=== PATIENT | female | born 1985 | race Caucasian/White ===

== ENCOUNTER 2018-02-26 19:57 | Emergency (ER) | payer SELFPAY ==
[2018-02-26 19:58] VITALS: BP 169/132; PULSE 104; RESP 17; TEMP 37.1; O2SAT 98; BMI 28.2
[2018-02-26 21:09] VITALS: BP 154/115; PULSE 95; RESP 15; O2SAT 94
--- NOTE | 2018-02-26 21:12 | ED.DCSUM_ITS ---
- ER Visit Summary Date of Service: 02/26/18 Chief Complaint: Left long finger injury History of Present Illness: The patient is a 32 F presenting for evaluation secondary to a left long finger injury. Patient states that she had just finished work and was going to lean on a beer keg. She reports that she was going to clear the water off of it and she lacerated her left long digit. She reports that her tetanus is up-to-date, but she states she was unable to get the bleeding to stop as she basically avulsed of the skin on her finger. Physical Examination: Upper extremity exam shows evidence of a superficial skin avulsion over the ulnar portion of the distal long left digit. Normal flexion and extension, normal sensation, normal capillary refill. Remainder of physical otherwise unremarkable. Test Results: None indicated Emergency Department Course and Treatment: Patient presented secondary to a skin avulsion. There is no tissue suture. Gelfoam was placed over top of this, and a dressing was placed over top of that. Patient had good hemostasis. Patient will follow-up as needed. Disposition: Discharge Impression: 1. Left long digit skin avulsion This note was generated with [employer] dictation software. It may contain incorrect words, spelling, and punctuation that were not noted in review of the chart prior to signing ED Disposition - Plan for ED Patient: Disposition: Home or Assisted Living Chief Complaint: Upper Extremity Injury Diagnosis: Skin avulsion Instructions: ED Avulsion Dermal Referrals: Francisco Ortiz MD [Primary Care Provider] - As Needed
== END 2018-02-26 21:32 | disposition home or self-care (01) ==
PROVIDERS: Emergency Provider Emergency Medicine; Family Provider Internal Medicine; PCP Internal Medicine
DX: S61.203A Unspecified open wound of left middle finger without damage to nail, initial encounter (principal); W45.8XXA Other foreign body or object entering through skin, initial encounter; Y93.9 Activity, unspecified; Y92.9 Unspecified place or not applicable; G43.909 Migraine, unspecified, not intractable, without status migrainosus
CPT/HCPCS: 99282

== ENCOUNTER → 2018-12-25 | Outpatient (CLI) | payer OTHER, SELFPAY ==
[2018-12-25 13:53] VITALS: BMI 28.2
[2018-12-25 21:54] LABS: Chlamydia Trachomatis by PCR Negative (Negative); Neisserai gonorrhoeae by PCR Negative (Negative); Probe Check PASS; Sample Adequacy Control PASS; Specimen Processing Control PASS
== END | disposition home or self-care (01) ==
PROVIDERS: Family Provider Internal Medicine; PCP Internal Medicine; Referring Provider Nurse Practitioner Women's Health; Visit Provider Nurse Practitioner Women's Health
DX: A64 Unspecified sexually transmitted disease (principal)
CPT/HCPCS: 87491; 87591

== ENCOUNTER → 2020-02-14 12:10 | Outpatient (CLI) | payer BC, SELFPAY ==
[2020-02-14 10:19] VITALS: BMI 31.7
[2020-02-18 14:29] LABS: HPV APTIMA, High Risk Negative (Negative)
== END | disposition home or self-care (01) ==
LOC: LABSPEC 12:11
PROVIDERS: PCP Internal Medicine; Visit Provider Nurse Practitioner Women's Health
CPT/HCPCS: 87624; 88175; G0145

== ENCOUNTER 2021-07-28 08:33 | Outpatient (CLI) | payer OTHER, SELFPAY ==
[2021-07-30 22:07] LABS: Chlamydia By Nucleic Acid AMP Negative (Negative)
[2021-07-30 23:02] LABS: Gonococcus By Nucleic Acid AMP Negative (Negative)
[2021-08-06 22:07] LABS: HPV Genotype 16, Aptima Negative (Negative)
[2021-08-07 13:40] LABS: HPV APTIMA, High Risk Positive (Negative); HPV Genotype 18,45 Aptima Negative (Negative)
== END 2021-07-28 23:59 | disposition home or self-care (01) ==
LOC: LABSPEC 07-29 08:34
PROVIDERS: PCP Internal Medicine; Visit Provider Nurse Practitioner Women's Health
DX: Z01.419 Encounter for gynecological examination (general) (routine) without abnormal findings (principal); Z11.3 Encounter for screening for infections with a predominantly sexual mode of transmission
CPT/HCPCS: 87491; 87591; 87624; 88175; G0145

== ENCOUNTER → 2022-10-22 | Outpatient (CLI) | payer OTHER, SELFPAY ==
[2022-10-28 20:07] LABS: HPV APTIMA, High Risk Positive (Negative); HPV Genotype 16, Aptima Negative (Negative); HPV Genotype 18,45 Aptima Negative (Negative)
== END | disposition home or self-care (01) ==
LOC: LABSPEC 15:58
PROVIDERS: PCP Internal Medicine; Referring Provider Advanced Practice Midwife; Visit Provider Advanced Practice Midwife
DX: Z01.419 Encounter for gynecological examination (general) (routine) without abnormal findings (principal)
CPT/HCPCS: 87624; 88175; G0145

== ENCOUNTER → 2023-10-24 | Outpatient (CLI) | payer BC, SELFPAY ==
[2023-10-28 17:07] LABS: HPV APTIMA, High Risk Negative (Negative)
== END | disposition home or self-care (01) ==
LOC: LABSPEC 12:23
PROVIDERS: PCP Internal Medicine; Referring Provider Obstetrics & Gynecology; Visit Provider Obstetrics & Gynecology
DX: Z12.4 Encounter for screening for malignant neoplasm of cervix (principal)
CPT/HCPCS: 87624; 88175; G0145

== ENCOUNTER 2025-03-19 09:56 | Day surgery (SDC) | payer BC, SELFPAY ==
--- NOTE | 2025-03-07 08:50 | EKG12_ITS ---
Test Reason : PRE OP Blood Pressure : */* mmHG Vent. Rate : 78 BPM Atrial Rate : 78 BPM P-R Int : 170 ms QRS Dur : 84 ms QT Int : 398 ms P-R-T Axes : 50 85 61 degrees QTcB Int : 453 ms Normal sinus rhythm Normal ECG No previous ECGs available Confirmed by Stevan Villar ([id number]), movie editor NA SHERIDAN ([id number]) on 03/11/2025 1:11:00 PM Referred By: Kaylah Puckett Confirmed By: Stevan Villar
--- NOTE | 2025-03-08 16:15 | PAT.ANESEVAL ---
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 When Was Last Pacemaker Check QUESTION #4 FULL TEXT: You/Your Family Experience fever (hyperthermia) with Anesthesia Last Oral Intake Last Oral intake: Last Oral Intake NPO since Meds taken in AM with sips of water? 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 Has anyone observed you stop No 03/06/25 13:12 breathing during sleep? STOP Results Positive 03/06/25 13:12 QUESTION #5 FULL TEXT : Do you snore loudly (louder than talking or can be heard through closed doors)? 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 Specify any problems Hx of Preganancy in last 3 No 03/06/25 13:12 Months Nurse Filling Out Transfusion DSCHRIBER 03/06/25 13:12 & Questions: Date: 03/06/25 03/06/25 13:12 Time: 13:16 03/06/25 13:12 Patient unable to answer at this time (ie. confused, unrespo /Reproduction History /Reproductive History - 7th grade teacher: /Reproductive Hx- 7th grade teacher Hx Now No 03/06/25 13:12 Gestational Age (in weeks): EDC: Hx Hx Para Hx Section SAB No 03/06/25 13:12 Does the father of the baby or his family experience fever w Father of the baby Malignant Hypertension history comment [facility] Medical History (Updated 03/07/25 @ 10:[address] Kaylah Puckett MD) Wears glasses Depression Anxiety Alcohol use Thyroid disease Low iron Migraine headache Dietary restriction Gastric reflux Shortness of breath on exertion Smoker History of edema History of echocardiogram Cardiology follow-up encounter History of irregular heartbeat PAH (pulmonary artery hypertension) HTN (hypertension) Home Medications ?Medication ?Instructions ?Recorded ?Last Taken ?Type fluticasone propionate 50 1 spray NASAL BID PRN nasal 01/08/14 Unknown History mcg/actuation nasal congestion spray,suspension loratadine 10 mg tablet 10 mg PO DAILY 01/08/14 Unknown History sumatriptan succinate 4 mg/0.5 mL 4 mg subcut Q1-4H PRN migraine 02/14/20 Unknown History subcutaneous pen injector (Imitrex headache STATdose Pen) [id number] 1 cap PO PRN PRN Pain 07/28/21 Unknown History 50 mg-325 mg-40 mg capsule diphenhydramine HCl 25 mg capsule 25 mg PO QHS PRN sleep 07/28/21 Unknown History (Benadryl) potassium chloride 20 mEq 20 meq PO QHS 10/22/22 Unknown History tablet,extended release(part/cryst) medroxyprogesterone 150 mg/mL 150 mg IM [id number] #1 mL 02/03/23 Unknown Rx intramuscular suspension (Depo-Provera) hydrochlorothiazide 12.5 mg tablet 12.5 mg PO DAILY 10/24/23 Unknown History macitentan 10 mg tablet (Opsumit) 10 mg PO QHS 10/24/23 Unknown History omeprazole 20 mg delayed 20 mg PO QHS 10/24/23 Unknown History release,disintegrating tablet spironolactone 50 mg tablet 50 mg PO DAILY 10/24/23 Unknown History (Aldactone) tadalafil 20 mg tablet 40 mg PO QHS 10/24/23 Unknown History varenicline tartrate 1 mg tablet 1 mg PO QHS 10/24/23 Unknown History (Chantix) bupropion HCl 150 mg 24 hr tablet, 300 mg PO QHS 10/25/24 Unknown History extended release (Wellbutrin XL) metoprolol succinate 50 mg 100 mg PO QHS 10/25/24 Unknown History tablet,extended release 24 hr ibuprofen 800 mg tablet (IBU) 800 mg PO Q8H PRN pain 03/06/25 Unknown History Allergy/AdvReac Type Severity Reaction Status Date / Time shellfish derived Allergy Anaphylaxis Verified 10/25/24 13:31 venom-honey bee (bee venom Allergy Swelling Verified 10/25/24 13:31 (honey bee)) adhesive AdvReac Rash Verified 10/25/24 13:31 Family History Grandmother Diabetes Heart disease Mother Hypertension Anxiety and depression Father Hypertension Skin cancer Grandfather Skin cancer Diabetes Surgical History History of cardiac catheterization Hx of exploratory laparotomy Status post unilateral salpingo-oophorectomy Status post colposcopy [place] teeth extracted Social History number of children: 0 current occupational status: employed 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 Smoking Status: Light Smoker (<10/day) alcohol intake: current alcohol intake frequency: a few times a month details: social substance use type: does not use caffeine: Yes what type of physical activity do you participate in: none seatbelt use: always do you feel safe at home: Yes additional social history: Audit: Pertinent Findings Pertinent Findings EKG Perinent findings: June 14, 2024. Normal sinus rhythm. Echo (EF%) pertinent findings: 03/07/2025. EF is 63%. Right ventricular systolic function is normal. Right ventricular size is normal. No significant valvular abnormalities. No change from July 20, 2024. Consult pertinent findings: 11/15/2024. Dr. Yoon-pulmonology. Patient has history of pulmonary hypertension. Currently well-controlled with normal right ventricular function. Patient is currently optimized from a cardiac pulmonary perspective and may proceed with planned laparoscopic procedure with anesthesia without any additional testing. Patient is to take her pulmonary hypertension medications (tadalafil and Opsumit) on same schedule as usual perioperatively. 06/14/2024. Dr. Jerica Manjarrez-cardiovascular imaging. 1. History of idiopathic pulmonary hypertension?well-controlled on tadalafil and macitentan. 2. Abdominal aortic echodensity-suspect artifactual in nature. Check abdominal ultrasound. 3. Hypertension?controlled continue current management. Recommendation Anesthesia Recommendation Anesthesia recommendation: OPTIMIZED for anesthesia (Patient is to take her pulmonary hypertension medications as usual perioperatively.)
[2025-03-19] VITALS (16 sets, daily range): BP systolic 95–126; BP diastolic 44–89; PULSE 82–96; RESP 12–16; TEMP 36.7–37; O2SAT 93–99; BMI 35.6
[2025-03-19 10:14] LABS: Internal QC Validated? YES +Cl - CLEAR BKGD; Pregnancy, Urine Negative Negative; Record Kit Lot#,Urine Preg 980607
[2025-03-19] MEDS: Lactated Ringers 1,000 ML 15 ML IV (10:34)
--- NOTE | 2025-03-19 11:30 | FALS_PTH ---
PATIENT: NOHEMI LEWIS LOC: [facility] [place] U#:[id number] AGE/SX: 39/F ROOM: RE03/19/[address]: Dr. Kaylah Puckett MD : 1985 BED: DIS: 03/19/2025 SPEC #: [id number] RECD: 03/19/25 14:30 STATUS: JIM REJim #: [id number] CARLOS: 03/19/25 11:[address]: Kaylah Puckett DEPT: SURGICAL PATHOLOGY RECD BY: Fredi Mohan ENTERED: 03/19/25 15:13 SP TYPE: FALL TUBES OTHR DR: Dr. Francisco Ortiz MD Tissues: A - Fallopian tube Procedures: Surgery Specimen Level II HEADER OPERATION: Laparoscopic left salpingectomy PRE-OP DIAGNOSIS: Sterilization TISSUE SUBMITTED: A- Left fallopian tube MICROSCOPIC DIAGNOSIS A. Left fallopian tube, laparoscopic left salpingectomy: * Benign fallopian tube with complete cross section obtained MICROSCOPIC DESCRIPTION Slides are reviewed. GROSS DESCRIPTION A. Received in formalin labeled with the patient's name and date of . Designated as left fallopian tube is a 6.7 x 0.4 cm pink-red fimbriated fallopian tube with few, paratubal cyst, <0.1 cm to 0.1 cm. Regional Rehabilitation Director sections are submitted in 2 cassettes. [place] 03/19/2025PT:[id number]
--- NOTE | 2025-03-19 11:44 | PCM.PRE.AN2 ---
ASA Classification* ASA Classification ASA Classification: 2 Assessment & Plan Anesthesia* Anesthesia Assessment Anesthesia Assessment: Discussed sedation and/or anesthesia options, risks, benefits, and alternatives with patient/parents/legal guardian/POA. Questions invited. The patient/parents/legal guardian/POA seems to understand and agrees to proceed with anesthesia plan. Reviewed the physical assessment, medical history, allergy history and patient home medications list prior to surgery/procedure/anesthetic and documented any changes. Performed airway and anesthesia risk assessments. Anesthesia Type Anesthesia Type: General (I spoke with the ADJUSTER LEADER in the room regarding the airway being anterior per patient.) History Source History Obtained from:: Patient and Chart Anesthesia Focused Assessment* Temperature: 98.6 F Pulse Rate: 86 Blood Pressure: 123/81 Respiratory Rate: 12 Pulse Ox: 97 Oxygen Delivery Method: Room Air Airway Assessment Mouth opens: >3 cm Mallampati Score: II (The patient stated that she was told that she is anterior airway.) Teeth Condition: Intact Neck Range of motion (ROM): Full ROM Labs Anesthesia Preop lab: CBC WBC, (4.4-11.0) 8.3 K/mm3 07/23/13, 00:40 RBC, (4.2-5.4) 4.49 M/mm3 07/23/13, 00:40 Hgb, (12.0-15.0) 14.2 g/dl 07/23/13, 00:40 Hct, (37-47) 41.2 % 07/23/13, 00:40 Plt Count, (150-450) 194 K/mm3 07/23/13, 00:40 CHEMISTRY Potassium, (3.5-5.1) 3.7 mmol/L 07/23/13, 00:40 Sodium, (136-145) 139 mmol/L 07/23/13, 00:40 BUN, (7-18) 14 mg/dL 07/23/13, 00:40 Creatinine, (0.6-1.0) 0.7 mg/dL 07/23/13, 00:40 Glucose, (70-110) 100 mg/dL 07/23/13, 00:40 TSH, (0.358-3.74) 1.63 uIU/mL 07/09/12, 01:20 COAG Urine Test Negative Negative Today, 10:05 [facility]st Clinic Negative 12/25/18, 14:24 Pre-Assessment Diagnosis/Proposed Procedure Planned Operative Procedure(s): LAP LEFT SALPINGECTOMY Anesthesia History 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 When Was Last Pacemaker Check QUESTION #4 FULL TEXT: You/Your Family Experience fever (hyperthermia) with Anesthesia Last Oral Intake Last Oral intake: Last Oral Intake NPO since 01:00 03/19/25 10:29 Meds taken in AM with sips of No 03/19/25 10:29 water? 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 Female Yes 03/06/25 13:12 HX of Motion Sickness No 03/06/25 13:12 HX of N/V After Surgery No 03/06/25 13:12 Non-Smoker No 03/06/25 13:12 Duration of Surgery greater Yes 03/06/25 13:12 than 60 minutes Number of Risk Factors 2 03/06/25 13:12 PONV Score Moderate Risk 03/06/25 13:12 Height & Weight Height & Weight: Anesthesia: Height & Weight Height 5 ft 6 in 03/19/25 10:29 Weight: 100 kg 03/19/25 10:29 Body Mass Index (BMI) 35.6 03/19/25 10:29 Respiratory Assessment Respiratory Assessment - last remodeler repairer: Respiratory Tract Infection Hx - last remodeler repairer Hx Respiratory Tract Infection No 03/06/25 13:12 STOP Sleep Apnea STOP Sleep Apnea - last remodeler repairer: STOP Sleep Apnea - last remodeler repairer Hx Hypertension Yes: CONTROLLED WITH MED 03/06/25 13:12 Hx Sleep Apnea No 03/06/25 13:12 CPAP BIPAP Do you snore loudly (louder Yes 03/06/25 13:12 than talking or can be heard Do you often feel tired/ No 03/06/25 13:12 fatigued/ sleepy during daytime? Has anyone observed you stop No 03/06/25 13:12 breathing during sleep? STOP Results Positive 03/06/25 13:12 QUESTION #5 FULL TEXT : Do you snore loudly (louder than talking or can be heard through closed doors)? 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 Specify any problems Hx of Preganancy in last 3 No 03/06/25 13:12 Months Nurse Filling Out Transfusion DSCHRIBER 03/06/25 13:12 & Questions: Date: 03/06/25 03/06/25 13:12 Time: 13:16 03/06/25 13:12 Patient unable to answer at this time (ie. confused, unrespo /Reproduction History /Reproductive History - last remodeler repairer: /Reproductive Hx- last remodeler repairer Hx Now No 03/06/25 13:12 Gestational Age (in weeks): EDC: Hx Hx Para Hx Section SAB No 03/07/25 09:57 Does the father of the baby or his family experience fever w Father of the baby Malignant Hypertension history comment Active Medications Active Medications: Current Medications Generic Name Dose Route Start Last Admin Trade Name Freq PRN Reason Stop Dose Admin Lactated Ringer's 1,000 mls @ 15 mls/hr 03/19/25 10:15 03/19/25 10:34 IV 15 mls/hr .Q48H VÍCTOR Administration PFSH Medical History Wears glasses Depression Anxiety Alcohol use Thyroid disease Low iron Migraine headache Dietary restriction Gastric reflux Shortness of breath on exertion Smoker History of edema History of echocardiogram Cardiology follow-up encounter History of irregular heartbeat PAH (pulmonary artery hypertension) HTN (hypertension) Home Medications ?Medication ?Instructions ?Recorded ?Last Taken ?Type fluticasone propionate 50 1 spray NASAL BID PRN nasal 01/08/14 Unknown History mcg/actuation nasal congestion spray,suspension loratadine 10 mg tablet 10 mg PO DAILY 01/08/14 03/18/25 History sumatriptan succinate 4 mg/0.5 mL 4 mg subcut Q1-4H PRN migraine 02/14/20 Unknown History subcutaneous pen injector (Imitrex headache STATdose Pen) [id number] 1 cap PO PRN PRN Pain 07/28/21 Unknown History 50 mg-325 mg-40 mg capsule diphenhydramine HCl 25 mg capsule 25 mg PO QHS PRN sleep 07/28/21 Unknown History (Benadryl) potassium chloride 20 mEq 20 meq PO QHS 10/22/22 03/18/25 History tablet,extended release(part/cryst) medroxyprogesterone 150 mg/mL 150 mg IM [id number] #1 mL 02/03/23 Unknown Rx intramuscular suspension (Depo-Provera) hydrochlorothiazide 12.5 mg tablet 12.5 mg PO DAILY 10/24/23 03/18/25 History macitentan 10 mg tablet (Opsumit) 10 mg PO QHS 10/24/23 03/18/25 History omeprazole 20 mg delayed 20 mg PO QHS 10/24/23 03/18/25 History release,disintegrating tablet spironolactone 50 mg tablet 50 mg PO DAILY 10/24/23 03/18/25 History (Aldactone) tadalafil 20 mg tablet 40 mg PO QHS 10/24/23 03/18/25 History varenicline tartrate 1 mg tablet 1 mg PO QHS 10/24/23 03/18/25 History (Chantix) bupropion HCl 150 mg 24 hr tablet, 300 mg PO QHS 10/25/24 03/18/25 History extended release (Wellbutrin XL) metoprolol succinate 50 mg 100 mg PO QHS 10/25/24 03/18/25 History tablet,extended release 24 hr ibuprofen 800 mg tablet (IBU) 800 mg PO Q8H PRN pain 03/06/25 Unknown History Allergy/AdvReac Type Severity Reaction Status Date / Time shellfish derived Allergy Anaphylaxis Verified 03/19/25 10:35 venom-honey bee (bee venom Allergy Swelling Verified 03/19/25 10:35 (honey bee)) adhesive AdvReac Rash Verified 03/19/25 10:35 Family History Grandmother Diabetes Heart disease Mother Hypertension Anxiety and depression Father Hypertension Skin cancer Grandfather Skin cancer Diabetes Surgical History History of cardiac catheterization Hx of exploratory laparotomy Status post unilateral salpingo-oophorectomy Status post colposcopy [place] teeth extracted Social History number of children: 0 current occupational status: employed 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
--- NOTE | 2025-03-19 12:19 | PCM.HP.OB ---
HPI - General HPI Narrative NOHEMI LEWIS, is a 39 F who presents [ ]Intake Vital Signs 10/25/2512:37 03/07/2509:56 03/07/2509:57 Height 5 ft 6 in 5 ft 6 in 5 ft 6 in Weight: 219 lb 5 oz BMI 35.4 BP 111/75 Intake Visit Reasons: Left Salping School Director Required: No Is patient in pain?: No Allergies shellfish derived Allergy (Verified 10/25/24 13:31) Anaphylaxis venom-honey bee (bee venom (honey bee)) Allergy (Verified 10/25/24 13:31) Swelling adhesive Adverse Reaction (Verified 10/25/24 13:31) Rash Medications ?Medication ?Instructions ?Recorded ?Confirmed ?Type fluticasone propionate 50 1 spray NASAL BID PRN nasal 01/08/14 03/07/25 History mcg/actuation nasal congestion spray,suspension loratadine 10 mg tablet 10 mg PO DAILY 01/08/14 03/07/25 History sumatriptan succinate 4 mg/0.5 mL 4 mg subcut Q1-4H PRN migraine 02/14/20 03/07/25 History subcutaneous pen injector (Imitrex headache STATdose Pen) [id number] 1 cap PO PRN PRN Pain 07/28/21 03/07/25 History 50 mg-325 mg-40 mg capsule diphenhydramine HCl 25 mg capsule 25 mg PO QHS PRN sleep 07/28/21 03/07/25 History (Benadryl) potassium chloride 20 mEq 20 meq PO QHS 10/22/22 03/07/25 History tablet,extended release(part/cryst) medroxyprogesterone 150 mg/mL 150 mg IM [id number] #1 mL 02/03/23 03/07/25 Rx intramuscular suspension (Depo-Provera) hydrochlorothiazide 12.5 mg tablet 12.5 mg PO DAILY 10/24/23 03/07/25 History macitentan 10 mg tablet (Opsumit) 10 mg PO QHS 10/24/23 03/07/25 History omeprazole 20 mg delayed 20 mg PO QHS 10/24/23 03/07/25 History release,disintegrating tablet spironolactone 50 mg tablet 50 mg PO DAILY 10/24/23 03/07/25 History (Aldactone) tadalafil 20 mg tablet 40 mg PO QHS 10/24/23 03/07/25 History varenicline tartrate 1 mg tablet 1 mg PO QHS 10/24/23 03/07/25 History (Chantix) bupropion HCl 150 mg 24 hr tablet, 300 mg PO QHS 10/25/24 03/07/25 History extended release (Wellbutrin XL) metoprolol succinate 50 mg 100 mg PO QHS 10/25/24 03/07/25 History tablet,extended release 24 hr ibuprofen 800 mg tablet (IBU) 800 mg PO Q8H PRN pain 03/06/25 03/07/25 History Is last menstrual period known: No Post menopausal: No Patient : No : No PFSH Medical History (Updated 03/07/25 @ 10:[address] Kaylah Puckett MD) Wears glasses Depression Anxiety Alcohol use Thyroid disease Low iron Migraine headache Dietary restriction Gastric reflux Shortness of breath on exertion Smoker History of edema History of echocardiogram Cardiology follow-up encounter History of irregular heartbeat PAH (pulmonary artery hypertension) HTN (hypertension) Surgical History History of cardiac catheterization Hx of exploratory laparotomy Status post unilateral salpingo-oophorectomy Status post colposcopy Archer teeth extracted Family History Grandmother Diabetes Heart disease Mother Hypertension Anxiety and depression Father Hypertension Skin cancer Grandfather Skin cancer Diabetes Social History number of children: 0 current occupational status: employed 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 Preoperative Consultation - Patient is scheduled for a laparoscopic salpingectomy on the . - She has a history of a right salpingectomy and oophorectomy. 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 - She has a history of an anterior airway, which reportedly caused difficulty during intubation in a previous surgery. - She was prescribed Lovenox for prophylaxis during recent air travel due to her pulmonary hypertension. - She has no current chest pain or shortness of breath, except during strenuous physical activity such as hiking. - She denies any current bowel or bladder complaints. - She reports left hip pain, which she attributes to compensatory mechanisms due to an inward rotation of her knee and foot. Pulmonary Hypertension - She has an appointment with her rolloff truck driver tomorrow, which will include a 6-minute walk test. - She reports that her rolloff truck driver has cleared her for anesthesia, stating she is cool with whatever you guys want to do. - She had an EKG this morning, which was reportedly normal. - She has an echocardiogram scheduled for this afternoon. - She had labs drawn today, including a CMP, CBC, and pro-BNP, which she plans to provide to the surgical team. Past Surgical History - Right salpingectomy and oophorectomy. - Exploratory laparotomy approximately 10 years ago. - She reports three incisions from a surgery last year, which she can still feel. Social History - She recently traveled internationally, including hiking [place] and visiting multiple countries. Subjective Sections: Current Meds - None PMHx - Pulmonary hypertension PSHx - Exploratory laparotomy - Right salpingo-oophorectomy Social Hx - Physical activity: Able to do strenuous hiking ([place]g., [place] ROS: Cardiovascular: (-) chest pain Respiratory: (+) exertional dyspnea Gastrointestinal: (-) abdominal pain Musculoskeletal: (+) left hip pain, (+) ankle weakness Patient Instructions: - Use the special antiseptic soap from your neck down the night before and the morning of surgery to reduce infection risk. - Do not eat any food for at least 8 hours before surgery. You may have clear liquids until 2 hours before your procedure. - Expect a phone call the day before surgery with your exact arrival time. - Arrive for laparoscopic salpingectomy on Tuesday, the (likely in the afternoon). The remaining fallopian tube will be removed through two small incisions, possibly using your previous incision sites. - Sequential compression devices (SCDs) will be applied during your procedure to help prevent blood clots. - Arrange for someone to drive you home; you will go home the same day. - Plan to return to your usual activities within one week, as tolerated. - You may resume driving once you are pain-free, usually within a couple of days. - Avoid operating heavy machinery until you have fully recovered and are no longer taking pain medications. Female Reproductive History Menopausal Symptoms: No night sweats History 1 Elective abortions Hx Para Spontaneous abortions Hx # Term Pregnancies Ectopic pregnancies Hx # Pregnancies Multiple births # of living children ROS Const Constitutional: Denies fatigue, night sweats, weight gain or weight loss ENT ENT: Reports system reviewed and no additional complaints, except as documented Cardio Card: Denies chest pain Resp Resp: Denies cough or dyspnea GI GI: Reports as per HPI; Denies abdominal pain, constipation, nausea or vomiting : Denies nipple discharge, urinary frequency, urinary incontinence, urinary hesitancy, urinary urgency, vaginal discharge, vaginal dryness, vaginal odor or vaginal pruritus Skin Skin/Breast: Denies alopecia, change in hair, dry skin, breast mass, breast pain, breast skin changes or nipple discharge Neuro Neuro: Reports system reviewed and no additional complaints, except as documented Psych Psych: Reports system reviewed and no additional complaints, except as documented Endo Endo: Denies cold intolerance, excessive sweating, heat intolerance or polydipsia Aj/Lymph Hematologic/Lymphatic: Denies easy bleeding, Denies easy bruising and Denies lymphadenopathy Exam Const General: cooperative, healthy appearing, comfortable and no acute distress Orientation: alert HENDE Head: normal to inspection and normocephalic Ears: hearing grossly normal bilaterally and external ears normal Nose: external nose normal and nares normal Face and sinus: normal facial exam Neck Neck: normal visual inspection and no lymphadenopathy Thyroid: thyroid normal Chest Chest palpation & inspection: normal inspection of the chest Resp Effort & Inspection: normal respiratory effort Auscultation: clear to auscultation bilaterally Cardio Rate: regular rate Rhythm: regular rhythm Heart Sounds: S1 normal and S2 normal GI Inspection: normal to inspection and non-distended Palpation: soft and no hepatosplenomegaly Musc Other: gross motor intact no deficits, full bilateral strength Skin General: no rashes or lesions noted Neuro General: patient alert, patient awake, moves all extremities and no focal motor deficits Motor: muscle tone normal throughout Extrem General: normal to inspection and no pedal edema Psych Appearance: grossly normal Mental Status: mental status grossly normal Affect: normal affect Speech and Movement: speech and movement normal Coding Level of Care Code No Charge Diagnoses Sterilization Z30.2 PAH (pulmonary artery hypertension) I27.21 Assessment and Plan Assessment and Plan (1) Sterilization: Status: Acute Comment: plan left salpingectomy. caprini risk score 3. scds only indicated. 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 cardiac clearance. Plan After discussing the patient's diagnosis and treatment plan options, patient wishes to proceed with surgical management. I have discussed with the patient the risks, benefits, and alternatives of the procedure which include but are not limited to risks of anesthesia, bleeding, infection, possible damage to bowel, bladder, or surrounding vasculature which could lead to additional surgery to evaluate any complications. Patient agrees to procedure and wishes to proceed. ACOG/uptodate references given for additional information regarding procedure. UPDATE- I have seen the patient and performed any clinically relevant updates to the history and physical exam. Kaylah Puckett MD [facility] Medical History Wears glasses Depression Anxiety Alcohol use Thyroid disease Low iron Migraine headache Dietary restriction Gastric reflux Shortness of breath on exertion Smoker History of edema History of echocardiogram Cardiology follow-up encounter History of irregular heartbeat PAH (pulmonary artery hypertension) HTN (hypertension) Home Medications ?Medication ?Instructions ?Recorded ?Last Taken ?Type fluticasone propionate 50 1 spray NASAL BID PRN nasal 01/08/14 Unknown History mcg/actuation nasal congestion spray,suspension loratadine 10 mg tablet 10 mg PO DAILY 01/08/14 03/18/25 History sumatriptan succinate 4 mg/0.5 mL 4 mg subcut Q1-4H PRN migraine 02/14/20 Unknown History subcutaneous pen injector (Imitrex headache STATdose Pen) [id number]-[id number] 1 cap PO PRN PRN Pain 07/28/21 Unknown History 50 mg-325 mg-40 mg capsule diphenhydramine HCl 25 mg capsule 25 mg PO QHS PRN sleep 07/28/21 Unknown History (Benadryl) potassium chloride 20 mEq 20 meq PO QHS 10/22/22 03/18/25 History tablet,extended release(part/cryst) medroxyprogesterone 150 mg/mL 150 mg IM [id number] #1 mL 02/03/23 Unknown Rx intramuscular suspension (Depo-Provera) hydrochlorothiazide 12.5 mg tablet 12.5 mg PO DAILY 10/24/23 03/18/25 History macitentan 10 mg tablet (Opsumit) 10 mg PO QHS 10/24/23 03/18/25 History omeprazole 20 mg delayed 20 mg PO QHS 10/24/23 03/18/25 History release,disintegrating tablet spironolactone 50 mg tablet 50 mg PO DAILY 10/24/23 03/18/25 History (Aldactone) tadalafil 20 mg tablet 40 mg PO QHS 10/24/23 03/18/25 History varenicline tartrate 1 mg tablet 1 mg PO QHS 10/24/23 03/18/25 History (Chantix) bupropion HCl 150 mg 24 hr tablet, 300 mg PO QHS 10/25/24 03/18/25 History extended release (Wellbutrin XL) metoprolol succinate 50 mg 100 mg PO QHS 10/25/24 03/18/25 History tablet,extended release 24 hr ibuprofen 800 mg tablet (IBU) 800 mg PO Q8H PRN pain 03/06/25 Unknown History Allergy/AdvReac Type Severity Reaction Status Date / Time shellfish derived Allergy Anaphylaxis Verified 03/19/25 10:35 venom-honey bee (bee venom Allergy Swelling Verified 03/19/25 10:35 (honey bee)) adhesive AdvReac Rash Verified 03/19/25 10:35 Family History Grandmother Diabetes Heart disease Mother Hypertension Anxiety and depression Father Hypertension Skin cancer Grandfather Skin cancer Diabetes Surgical History History of cardiac catheterization Hx of exploratory laparotomy Status post unilateral salpingo-oophorectomy Status post colposcopy Archer teeth extracted Social History number of children: 0 current occupational status: employed 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 [employer] Smoking Status: Light Smoker (<10/day) alcohol intake: current alcohol intake frequency: a few times a month details: social substance use type: does not use caffeine: Yes what type of physical activity do you participate in: none seatbelt use: always do you feel safe at home: Yes additional social history: History 1 Elective abortions Hx Para Spontaneous abortions Hx # Term Pregnancies Ectopic pregnancies Hx # Pregnancies Multiple births # of living children Vital Signs Vital Signs Vital Signs: 03/19/25 10:29 03/19/25 10:29 03/19/25 10:29 Temperature 98.6 F Temperature Source Temporal Pulse Rate 86 Respiratory Rate 12 Respiratory Pattern Normal Blood Pressure 123/81 H Blood Pressure Mean 95 Blood Pressure Source Monitor Blood Pressure Position Semi-Fowlers Blood Pressure Location Right Arm Baseline BP 123/81 Pulse Ox 97 Oxygen Delivery Method Room Air 03/19/25 11:45 Temperature 98.6 F Temperature Source Pulse Rate 86 Respiratory Rate 12 Respiratory Pattern Blood Pressure 123/81 H Blood Pressure Mean Blood Pressure Source Blood Pressure Position Blood Pressure Location Baseline BP Pulse Ox 97 Oxygen Delivery Method Room Air Weight Weight: 220 lb 7.396 oz Body Mass Index (BMI) 35.6 Labs Labs Labs: Blood Type A POSITIVE Antibody Screen NEGATIVE Hct, (37-47) 41.2 % Hgb, (12.0-15.0) 14.2 g/dl Chlamydia DNA (VALERIO), (Negative) Negative N.gonorrhoeae DNA (VALERIO), (Negative) Negative Miscellaneous Test
[2025-03-19] MEDS: Lactated Ringers 1,000 ML 1000 ML IV (12:25)
[2025-03-19] MEDS: Lidocaine 1% (5 ml sdv) 5 ML Vial IV (12:33)
[2025-03-19] MEDS: fentaNYL 100 MCG/2 ML Ampul IV (12:33)
--- NOTE | 2025-03-19 12:44 | OP.PCM_ITS ---
Multi Select Codes Urinary/Genital Urinary/Genital CPT Codes: 19851 Laproscopic BS/O Operative Report (Standard) Operative Information Date of Procedure: 03/19/25 Pre-Operative Diagnosis: sterilization Post-Operative Diagnosis: same Surgery/Procedure Performed: laparoscopic left salpingectomy explosives worker: Yes Insurance Premium Auditor: Madeleine Rollins Tasks completed by operations administrative assistant: Opening & closing, Altering tissue and Insert Trochanter Additional department assistant?: No Type of Anesthesia: General RN Documented Start/Stop Times: Operation Date: 03/19/25 11:30 Case Time Into Pre-Op 03/19/25 10:05 Anesthesia Start 03/19/25 12:27 Into Room 03/19/25 12:27 Procedure Start 03/19/25 12:51 Procedure End 03/19/25 13:46 Anesthesia End 03/19/25 13:51 Out of Room 03/19/25 13:51 Into Recovery 03/19/25 13:53 Procedure Start Time: 12:51 Procedure Stop Time: 13:46 Select all DRAINS/GRAFTS/IMPLANTS that apply: None Estimated Blood Loss: 25 Specimen collected: Yes Description of specimen(s) removed: l tube Description of surgery: Patient was taken in the operating room and was placed under general anesthesia was prepped and draped in normal sterile fashion in the dorsal lithotomy position. Bladder was drained of clear urine and SCDs were on preoperatively. Uterus was sounded and a uterine manipulator was placed after dilating. Attention was then paid to the abdominal portion of the procedure and the umbilicus was elevated with towel clamps and injected with Marcaine and after a 5 mm incision was made and the Veress needle was entered into the abdomen but unable to be confirmed to be intra-abdominal so this entry method was aborted and entry method was switched to the Mary Ellen technique. fascia identified and elevated, entered and trocar inserted at the umbilicus. Abdomen was insufflated with CO2 gas and 2 5 mm optical trocars were placed under direct visualization. Uterus was well visualized and upon inspection of the pelvis right tube and ovary were absent but left tube and ovary were present, simple cyst on the ovary present. left tube elevated and mesosalpinx transected with the ligasure device, removing the tube. Excellent hemostasis was noted in the pelvis. Liver and upper abdomen were visualized notably within normal limits and no other gross abnormalities were seen in the abdomen. All instruments removed from the abdomen after gas was desufflated. umbilical fascia closed with running 0 vicryl and Port sites were closed with 3-0 Monocryl Steri's and op sites were applied. All instruments removed from the vagina and patient was awoken and taken recovery in stable condition. Surgical Findings: nl uterus and left tube and ovary Complications Complications: No
[2025-03-19] MEDS: Ketorolac 30 MG/ML Syringe IV (13:20)
--- NOTE | 2025-03-19 13:36 | DCINST_ITS ---
Discharge Instructions DC O2, CPAP, BIPAP needs Home O2 Discharge instructions: No Dressing / Incision Discharge Activity: Return to Normal Activity, May Not Drive ( while taking narcotic pain meds, when pain free), May Shower and May Take a Tub Bath (in 7 days) May resume sexual activity in: 1 week Weight Bearing Status: Full weight bearing Dressing / Incision Call your doctor if your incision/area has: Continuous Slow Oozing, Sudden Increased Bleeding, Increased Pain/ Swelling, Increased Redness and Foul Smelling Discharge Call your doctor if you observe: Fever of 101 or Higher, Using more than 1 pad per hour, Shortness of breath, Chest pain and Uncontrolled pain Suture Line Care: Avoid Pulling/Pushing and Avoid Pinching/Bending Remove Dressing in: 1 week (if present) Cleanse incision/area with: Soap & Water and Keep Dressing Clean & Dry Follow Up Care When: Call to make an appointment with your doctor for a fu/incision check in 1- 2 weeks. Test Results: Test results from this visit will be discussed in further detail at your follow- up appointment, if applicable. Discharge Plan Admission Attending Provider: Kaylah Puckett Primary Care Provider: Francisco Ortiz Instructions Print Language: Citizen Of [place] Discharge Orders/Prescriptions Prescriptions: New tramadol 100 mg tablet 100 mg PO Q6H PRN (Reason: pain) Qty: 20 0RF naproxen 500 mg tablet 500 mg PO BID PRN PRN (Reason: Pain) Qty: 30 1RF No Action sumatriptan succinate [Imitrex STATdose Pen] 4 mg/0.5 mL pen injector 4 mg SC Q1-4H PRN (Reason: migraine headache) Rx Instructions: do not exceed 2 doses in a 24 hour period bupropion HCl [Wellbutrin XL] 150 mg tablet extended release 24 hr 300 mg PO QHS turhnjktyo-iftmiwbmqysvq-vhaz 50-325-40 mg capsule 1 cap PO PRN PRN (Reason: Pain) diphenhydramine HCl [Benadryl] 25 mg capsule 25 mg PO QHS PRN (Reason: sleep) potassium chloride 20 mEq tablet,ER particles/crystals 20 meq PO QHS Patient Comments: TAKE 1 TABLET BY MOUTH TWICE DAILY FOR 3 DAYS spironolactone [Aldactone] 50 mg tablet 50 mg PO DAILY tadalafil 20 mg tablet 40 mg PO QHS varenicline tartrate [Chantix] 1 mg tablet 1 mg PO QHS hydrochlorothiazide 12.5 mg tablet 12.5 mg PO DAILY Opsumit 10 mg tablet 10 mg PO QHS omeprazole 20 mg tablet,disintegrat, delay rel 20 mg PO QHS metoprolol succinate 50 mg tablet extended release 24 hr 100 mg PO QHS fluticasone propionate 1 SPRAY spray,suspension 1 spray NASAL BID PRN (Reason: nasal congestion) loratadine 10 MG tablet 10 mg PO DAILY ibuprofen [IBU] 800 mg tablet 800 mg PO Q8H PRN (Reason: pain) medroxyprogesterone [Depo-Provera] 150 mg/mL suspension 150 mg IM [id number] Qty: 1 2RF Other Ambulatory Orders: 12 Lead EKG (Routine) Timeframe: [id number] Location: None Selected Ordered By: Dr. Kaylah Puckett Referrals / Follow Up: Francisco Ortiz MD [Primary Care Provider, Internal Medicine] Disposition Disposition (needs filled in before D/C Order can be placed): Home, Self Care
--- NOTE | 2025-03-19 14:05 | PCM.POST.ANE ---
Anesthesia: Postop Eval I Current Vital Signs Temperature: 98.1 F Pulse Rate: 85 Blood Pressure: 118/76 Respiratory Rate: 16 Pulse Ox: 99 Oxygen Delivery Method: Room Air Assessment Airway patent: Yes Spontaneous unlabored respirations: Yes Mental status: Awake and Calm nausea: No Vomiting: No Anesthesia Complication: No Fluid Hydration Crystalloid volume administer (ml): 700 Total IV fluid infused: 700 Progress Note Anesthesia document: Postop Eval 1 completed: Yes
--- NOTE | 2025-03-19 16:32 | POSTOPAN2_ITS ---
Anesthesia Postop Eval I Sum Postop Eval Completion status Anesthesia document: Postop Eval 1 completed: Yes Anesthesia Postop Eval I Summary Anesthesia Postop Eval I Summary: Anesthesia Postop Eval I: Assessment Summary Airway patent Yes 03/19/25 14:06 POLYMER [email or web address].[email or web address] Spontaneous unlabored Yes 03/19/25 14:06 POLYMER TESTER.[email or web address] respirations Mental status Awake,Calm 03/19/25 14:06 POLYMER TESTER.GDOTT nausea No 03/19/25 14:06 POLYMER TESTER.GDOTT Vomiting No 03/19/25 14:06 POLYMER TESTER.GDOTT Anesthesia Postop Eval I: Fluid Summary Crystalloid volume administer 700 03/19/25 14:06 POLYMER TESTER.GDOTT (ml) Colloids volume administered ( ml) Blood Product volume administered (ml) Total IV fluid infused 700 03/19/25 14:06 POLYMER TESTER.GDOTT Anesthesia Postop Eval I: Summary Notes Anesthesia Complication No 03/19/25 14:06 POLYMER TESTER.GDOTT Anesthesia Complication Comment: Post-operative progress note Anesthesia: Postop Eval II Evaluation Mental status: Awake and Calm Pain Level: 1 nausea: No Vomiting: No Complications Anesthesia Complication: No
--- NOTE | 2025-03-19 16:32 | PCM.POSTANE2 ---
Anesthesia Postop Eval I Sum Postop Eval Completion status Anesthesia document: Postop Eval 1 completed: Yes Anesthesia Postop Eval I Summary Anesthesia Postop Eval I Summary: Anesthesia Postop Eval I: Assessment Summary Airway patent Yes 03/19/25 14:06 HUMAN RESOURCES OPERATIONS COORDINATOR.GDOTT Spontaneous unlabored Yes 03/19/25 14:06 HUMAN RESOURCES OPERATIONS COORDINATOR.GDOTT respirations Mental status Awake,Calm 03/19/25 14:06 HUMAN RESOURCES OPERATIONS COORDINATOR.GDOTT nausea No 03/19/25 14:06 HUMAN RESOURCES OPERATIONS COORDINATOR.GDOTT Vomiting No 03/19/25 14:06 HUMAN RESOURCES OPERATIONS COORDINATOR.GDOTT Anesthesia Postop Eval I: Fluid Summary Crystalloid volume administer 700 03/19/25 14:06 HUMAN RESOURCES OPERATIONS COORDINATOR.GDOTT (ml) Colloids volume administered ( ml) Blood Product volume administered (ml) Total IV fluid infused 700 03/19/25 14:06 HUMAN RESOURCES OPERATIONS COORDINATOR.GDOTT Anesthesia Postop Eval I: Summary Notes Anesthesia Complication No 03/19/25 14:06 HUMAN RESOURCES OPERATIONS COORDINATOR.GDOTT Anesthesia Complication Comment: Post-operative progress note Anesthesia: Postop Eval II Evaluation Mental status: Awake and Calm Pain Level: 1 nausea: No Vomiting: No Complications Anesthesia Complication: No
== END 2025-03-19 16:53 | disposition home or self-care (01) ==
LOC: SDC 09:57 → AC 09:59
PROVIDERS: PCP Internal Medicine; Referring Provider Obstetrics & Gynecology; Visit Provider Obstetrics & Gynecology
PROC: (CPT 58661; principal; 2025-03-19 11:15)
DX: Z30.2 Encounter for sterilization (principal); I27.20 Pulmonary hypertension, unspecified; I10 Essential (primary) hypertension; F41.9 Anxiety disorder, unspecified; F32.A Depression, unspecified; K21.9 Gastro-esophageal reflux disease without esophagitis; G43.909 Migraine, unspecified, not intractable, without status migrainosus; F17.200 Nicotine dependence, unspecified, uncomplicated; Z79.899 Other long term (current) drug therapy
CPT/HCPCS: 58661; 00840; 81025; 86850; 86900; 86901; 88302; 93005; J2405

== ENCOUNTER → 2025-03-25 | Outpatient (CLI) | payer BC, SELFPAY ==
[2025-03-25 12:23] LABS: Hematocrit 35.2 % (37-47); Hemoglobin 10.9 g/dL (12.0-15.0); Immature Granulocytes Count 0.020 X10^3/uL (0.0-0.0); Mean Corp Hgb Conc 31.0 g/dL (32-36); Mean Corpuscular Volume 78.4 fL (81-99); Mean Platelet Vol. 9.9 fl (6.2-12.0); NRBC Flagged by Analyzer 0 % (0-5); Platelet Count 344 K/mm3 (150-450); RBC Distribution Width CV 16.1 % (11.6-14.6); RBC Distribution Width SD 45.1 fl (35.1-43.9); Red Blood Count 4.49 M/mm3 (4.2-5.4); White Blood Count 5.4 K/mm3 (4.4-11.0)
== END | disposition home or self-care (01) ==
LOC: BWCLAB 11:43
PROVIDERS: PCP Internal Medicine; Visit Provider Obstetrics & Gynecology
DX: D64.9 Anemia, unspecified (principal)
CPT/HCPCS: 36415; 85025